=== PATIENT | male | born 1965 | race Caucasian/White ===

== ENCOUNTER 2016-09-19 16:50 | Emergency (ER) | payer MEDICAID ==
[~2016-09-19] VITALS: Ht 188 cm; Wt 120.0 kg
[2016-09-19 16:53] VITALS: BP 117/60; PULSE 92; RESP 24; TEMP 98; O2SAT 100
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
[2016-09-19 17:08] VITALS: RESP 16; O2SAT 98
[2016-09-19] MEDS: RESP: ALBUTEROL 2.5 MG/IPRATROPIUM 0.5 MG NEB (SCH) INH ×2 (17:11→17:12)
[2016-09-19 17:13] VITALS: O2SAT 94
[2016-09-19] MEDS: SODIUM CHLORIDE 0.9% FLUSH 10 ML FLUSH IVF PRN ×2 (17:14→18:30)
[2016-09-19] MEDS ORDERED: methylPREDNISolone SOD SUCC 125 MG/2 ML VIAL IVP ONE (17:15)
[2016-09-19 17:40] LABS: AUTOMATED NEUTROPHIL # 7.2 TH/MM3 (1.8-7.7); BASOPHIL # 0.1 TH/MM3 (0-0.2); BASOPHIL % 0.6 % (0.0-2.0); EOSINOPHIL # 0.2 TH/MM3 (0-0.4); EOSINOPHIL % 1.9 % (0.0-4.0); HEMATOCRIT 46.2 % (39.0-51.0); LYMPH % 24.9 % (9.0-44.0); LYMPHOCYTE # 2.8 TH/MM3 (1.0-4.8); MEAN CELL VOLUME 92.1 FL (80.0-100.0); MEAN CORPUSCULAR HGB CONC 32.6 % (32.0-36.0); MONO % 9.1 % (0.0-8.0); NEUT % 63.5 % (16.0-70.0); PLATELET COUNT 178 TH/MM3 (150-450); RED BLOOD COUNT 5.02 MIL/MM3 (4.50-5.90); RED CELL DISTRIBUTION WIDTH 14.3 % (11.6-17.2); WHITE BLOOD COUNT 11.4 TH/MM3 (4.0-11.0)
[2016-09-19 17:41] LABS: HEMO FLAGS DIFF FINAL
[2016-09-19 17:49] LABS: APTT (PATIENT) 20.1 SEC (24.3-30.1)
[2016-09-19 17:56] LABS: ANION GAP 12 MEQ/L (5-15); BICARBONATE 21.8 MEQ/L (21.0-32.0); BLOOD UREA NITROGEN 15 MG/DL (7-18); CHLORIDE 106 MEQ/L (98-107); GLOMERULAR FILTRATION RATE 50 ML/MIN (>89); POTASSIUM 4.6 MEQ/L (3.5-5.1); SODIUM (NA) 140 MEQ/L (136-145)
[2016-09-19 17:59] LABS: CREATINE KINASE 132 U/L (39-308)
[2016-09-19 18:00] VITALS: BP 115/65; PULSE 84; RESP 16; O2SAT 97
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
[2016-09-19] MEDS ORDERED: MORPHINE SULFATE 4 MG/ML INJ IV PUSH ONE (18:30)
[2016-09-19] MEDS ORDERED: SODIUM CHLOR 0.9% 1000 ML INJ 1,000 ML IV SCH (19:18)
[2016-09-19] MEDS ORDERED: SODIUM CHLORIDE 0.9% FLUSH 10 ML FLUSH IV FLUSH PRN (19:30)
[2016-09-19] MEDS ORDERED: IOHEXOL 350 MG/ML 10 ML VIAL (for RAD DIAG) IV ONE (19:41)
[2016-09-19 19:54] VITALS: BP 124/76; PULSE 80; RESP 26; O2SAT 98
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
--- NOTE | 2016-09-20 10:39 | EKG ---
Date Performed: 09/19/2016 Time Performed: 17:19:04 PTAGE: 51 years EKG: Sinus rhythm PROBABLE LATERAL MYOCARDIAL INFARCTION INFERIOR MYOCARDIAL INFARCTION ABNORMAL ECG NO PREVIOUS TRACING DOCTOR: Roby Milner Interpretating Date/Time 09/20/2016 10:35:48
== END 2016-09-19 21:30 | disposition home or self-care (01) ==
LOC: NEPA 16:50
DX: T75.1XXA Unspecified effects of drowning and nonfatal submersion, initial encounter (principal); R07.9 Chest pain, unspecified; R10.9 Unspecified abdominal pain; J44.9 Chronic obstructive pulmonary disease, unspecified; I25.2 Old myocardial infarction; R94.31 Abnormal electrocardiogram [ECG] [EKG]; X58.XXXA Exposure to other specified factors, initial encounter; Y93.11 Activity, swimming; Y92.832 Beach as the place of occurrence of the external cause; Y99.9 Unspecified external cause status; R10.33 Periumbilical pain
CPT/HCPCS: 71010; 74177; 80048; 82550; 82552; 83735; 84484; 85025; 85610; 85730; 93005; 94664; 96374; 96375; 99285; J2270; J2930; J7030; Q9967